=== PATIENT | male | born 2000 | race African-American/Black ===

== ENCOUNTER 2022-04-02 08:55 | Emergency (ER) | payer OTHER ==
[~2022-04-02] VITALS: Ht 170.2 cm; Wt 59.0 kg
[2022-04-02 09:18] VITALS: BP_SYST 108
[2022-04-02] MEDS ORDERED: NIRM1TAB5 PO (10:27)
[2022-04-02] MEDS ORDERED: IBUP-1971 PO (10:27)
[2022-04-02 10:36] VITALS: BP_SYST 108
== END 2022-04-02 10:35 | disposition home or self-care (01) ==
LOC: SED 08:55
DX: U07.1 COVID-19 (principal); J40 Bronchitis, not specified as acute or chronic; R05.9 Cough, unspecified; R09.81 Nasal congestion; J02.9 Acute pharyngitis, unspecified; Z79.899 Other long term (current) drug therapy
CPT/HCPCS: 36415; 71045; 99284